=== PATIENT | female | born 1995 | race Two or more races ===

== ENCOUNTER 2019-06-20 23:19 | Emergency (ER) | payer MEDICAID ==
[~2019-06-20] VITALS: Ht 162.6 cm; Wt 72.6 kg
--- NOTE | 2019-06-20 23:22 | Emergency Room Report ---
History of Present Illness General Source: Patient Present Illness HPI Is a 23-year-old female who states she had a stroke when she was 11. She presents with complaint headache. She was eating tonight and she had a severe headache. Is diffuse in nature. No nausea no vomiting. Pain is sharp. Nothing made it better. Nothing made it worse. So she called 911. Denies any fever chills but denies any nausea vomiting. Denies any abdominal pain. No focal deficit. Did not take anything for it Allergies: Coded Allergies: No Known Allergies (Unverified , 06/20/19) Patient History Past Medical History: see triage record, old chart reviewed, CVA/TIA Past Surgical History: none Pertinent Family History: none Social History: Denies: smoking Now: No Immunizations: other Reviewed Nursing Documentation: PMH: Agreed; PSxH: Agreed Review of Systems Eye: Denies: eye pain, blurred vision ENT: Denies: ear pain, nose congestion, throat swelling Respiratory: Denies: cough, shortness of breath Cardiovascular: Denies: chest pain, palpitations Gastrointestinal: Denies: abdominal pain, diarrhea, nausea, vomiting Musculoskeletal: Denies: back pain, joint pain Skin: Denies: rash Neurological: Reports: headache; Denies: numbness Endocrine: Denies: increased thirst, increased urine Hematologic/Lymphatic: Denies: easy bruising All Other Systems: negative except mentioned in HPI Physical Exam Vitals unremarkable Sp02 EP Interpretation: reviewed, normal General Appearance: well appearing, no apparent distress, alert Head: normocephalic, atraumatic Eyes: bilateral eye PERRL, bilateral eye EOMI ENT: hearing grossly normal, normal pharynx Neck: full range of motion, supple, no meningismus Respiratory: chest non-tender, lungs clear, normal breath sounds Cardiovascular #1: regular rate, rhythm, no murmur Gastrointestinal: normal bowel sounds, non tender, no mass, no organomegaly, no bruit, non-distended Musculoskeletal: back normal, normal range of motion, gait/station normal Psychiatric: mood/affect normal Medical Decision Making Diagnostic Impression: Primary Impression: Headache Qualified Codes: R51 - Headache ER Course This patient presents with headache. She has a history of hydrocephalus and has a [employer] shunt. She is scheduled to see the neurosurgeon soon. CT scan showed that the right ventricle is very slit like. This may be causing her headache from too much fluid withdrawal. No evidence of any meningitis, sepsis, bleed. Better now. Will discharge home. CT/MRI/US Diagnostic Results CT/MRI/US Diagnostic Results : Imaging Test Ordered: CT head Impression Read by radiologist. Right ventricle is slit like. No bleed. Status: improved Disposition: HOME, SELF-CARE Condition: Stable Scripts Ibuprofen* (MOTRIN*) 600 Mg Tablet 600 MG ORAL THREE TIMES A DAY, #30 TAB 0 Refills Prov: King Rivas MD 06/21/19 Patient Instructions: General Headache Without Cause Additional Instructions: Follow-up with your doctor in 7 days. You will need to follow-up with neurosurgery regarding the [employer] shunt. Return if symptoms worsen. King Rivas MD Jun 20, 2019 23:22
[2019-06-20 23:46] VITALS: BP 126/79
--- NOTE | 2019-06-20 23:49 | NUR ---
ED Nurse Note: Patient presents to ED with ambulance RA 611 from home c/o headache that started at 1800 while she was eating dinner. Patient presented AAO x4.
--- NOTE | 2019-06-21 00:45 | Diagnostic Imaging Report ---
Indications: Headache for 6 hours Technique: Spiral acquisitions obtained through the brain. Angled axial and coronal 5 x 5 mm slices were reconstructed. Total dose length product 1179 mGycm. CTDI vol(s) 53 mGy. Dose reduction achieved using automated exposure control Comparison: None. Findings: There is a right transparietal ventriculostomy, tip of which is at the level of the anterior cavum septum pellucidum. There is markedly asymmetric small caliber of the right lateral ventricle, and normal caliber of the left lateral ventricle. The extra-axial CSF spaces appear symmetric. No acute intracranial bleed or mass effect. Normal henry-white differentiation. Visualized orbits are unremarkable. There is left maxillary sinus disease. The calvarium is intact. Impression: Negative for acute intracranial bleed or mass effect Right transparietal ventriculostomy. There is asymmetric decompression of the right lateral ventricle, significance of which is uncertain as the left lateral ventricle does not appear to be dilated Left maxillary sinus disease incidentally noted This agrees with the preliminary interpretation provided overnight by [facility]. The CT scanner at [facility] is accredited by the [employer] and the scans are performed using protocols designed to limit radiation exposure to as low as reasonably achievable to attain images of sufficient resolution adequate for diagnostic evaluation.
[2019-06-21] MEDS ORDERED: IBUPROFEN600 MG ORAL (00:46)
[2019-06-21 00:54] VITALS: BP 126/79
--- NOTE | 2019-06-21 00:54 | NUR ---
ED Nurse Note: Pt cleared by health care Provider for discharge. DC instructions/prescription was given and explained to pt and verbalized understanding of teachings. All medical deviecs such as ID band removed. Pt is AAO x4, ambulatory and left with all personal belongings.
== END 2019-06-21 00:54 | disposition home or self-care (01) ==
LOC: EDBD 23:19 → EMR 23:49
DX: R51 Headache (principal); Z86.73 Personal history of transient ischemic attack (TIA), and cerebral infarction without residual deficits
CPT/HCPCS: 70450; Z7502; 99284